=== PATIENT | female | born 2000 | race Two or more races ===

== ENCOUNTER 2022-10-28 12:23 | Outpatient (CLI) | payer OTHER | END 2022-10-28 13:30 | disposition home or self-care (01) | LOC: PRENATAL 12:23 | PROVIDERS: ATTEND Obstetrics & Gynecology Maternal & Fetal Medicine | DX: O35.9XX0 Maternal care for (suspected) fetal abnormality and damage, unspecified, not applicable or unspecified (principal); O35.3XX0 Maternal care for (suspected) damage to fetus from viral disease in mother, not applicable or unspecified; O44.00 Complete placenta previa NOS or without hemorrhage, unspecified trimester; Z3A.20 20 weeks gestation of pregnancy ==

== ENCOUNTER 2022-12-25 14:01 | Outpatient (CLI) | payer OTHER | END 2022-12-25 17:28 | disposition home or self-care (01) | LOC: PRENATAL 14:01 | PROVIDERS: ATTEND Obstetrics & Gynecology Maternal & Fetal Medicine | DX: O26.849 Uterine size-date discrepancy, unspecified trimester (principal); O44.00 Complete placenta previa NOS or without hemorrhage, unspecified trimester; Z3A.28 28 weeks gestation of pregnancy ==

== ENCOUNTER 2023-02-25 18:34 | Inpatient (IN) | payer OTHER ==
[~2023-02-25] VITALS: Ht 152.4 cm; Wt 2.7 kg
[2023-02-25 19:37] LABS: PH,URINE 5.5 (5.0-8.0); URINE APPEARANCE Clear; URINE BILIRRUBIN Negative (NEGATIVE); URINE BLOOD Negative; URINE COLOR Yellow; URINE GLUCOSE Negative (NEGATIVE); URINE LEUKOCYTE Small; URINE NITRATE Negative; URINE PROTEIN Negative (NEGATIVE)
[2023-02-25 19:40] LABS: URINE EPITHELIAL CELLS 43.7 uL (0.0-38.8); URINE WBC 98.3 uL (0.0-23.2)
[2023-02-25 19:45] LABS: HEMATOCRIT 29.9 % (36.0-45.00); HEMOGLOBIN 10.3 g/dL (12.0-15.00); MEAN CELL VOLUME 76.1 fL (80.00-100.00); MEAN CORPUSCULAR HEMOGLOBIN 26.1 pg (27.00-32.0); MEAN CORPUSCULAR HGB CONC 34.3 g/dl (32.0-36.0); PLATELET COUNT 259 K/uL (150-450); RED BLOOD COUNT 3.93 M/uL (4.00-6.00)
[2023-02-25 19:46] LABS: RED CELL DISTRIBUTION WIDTH 28.5 % (11.5-14.5)
[2023-02-25 19:54] LABS: INR < 0.93; PROTHROMBIN TIME 9.8 SECONDS (9.0-11.5)
[2023-02-25] MEDS ORDERED: PRENATAL TABLE1 EAC1 PO (19:57)
[2023-02-25] MEDS ORDERED: VALTREX1000 MG PO (19:58)
[2023-02-25 20:09] LABS: ALBUMIN 2.7 gm/dL (3.4-5.0); BILIRUBIN TOTAL 0.31 mg/dL (0.3-1.2); CALCIUM 9.1 mg/dL (8.5-10.1); CREATININE SERUM 0.42 mg/dL (0.55-1.02); GFR 183.83; GLOBULINA 3.8 G/DL (2.4-3.5); POTASSIUM 4.18 mEq/L (3.5-5.1); TOTAL PROTEIN 6.5 gm/dL (6.4-8.2)
[2023-02-26 07:40] LABS: ABG PH 7.298 (7.35-7.45)
[2023-02-26 07:41] LABS: BASE EXCESS -5.6 mmol/l; BICARBONATE 20.6 mmol/l (23-25); SaO2 50.3 %; o2 21 %
[2023-02-26 10:02] LABS: HEMATOCRIT 27.5 % (36.0-45.00); MEAN CELL VOLUME 76.9 fL (80.00-100.00); MEAN CORPUSCULAR HGB CONC 33.3 g/dl (32.0-36.0); PLATELET COUNT 248 K/uL (150-450); RED BLOOD COUNT 3.58 M/uL (4.00-6.00)
[2023-02-26 10:04] LABS: RED CELL DISTRIBUTION WIDTH 28.9 % (11.5-14.5)
[2023-02-26 10:05] LABS: HEMOGLOBIN 9.1 g/dL (12.0-15.00); MEAN CORPUSCULAR HEMOGLOBIN 25.4 pg (27.00-32.0)
[2023-03-01] MEDS ORDERED: NAPR500T14 PO (09:09)
[2023-03-01] MEDS ORDERED: Tylenol #3 PO (09:09)
== END 2023-03-01 14:22 | disposition home or self-care (01) | DRG 788 ==
LOC: LDR 18:34 → O/R 02-26 07:18 → OB/GYN 02-26 11:07
PROVIDERS: ADMIT Obstetrics & Gynecology; ATTEND Obstetrics & Gynecology
PROC: 4A1HXCZ Monitoring of Products of Conception, Cardiac Rate, External Approach (ICD-10-PCS; 2023-02-25)
PROC: 10D00Z1 Extraction of Products of Conception, Low, Open Approach (ICD-10-PCS; principal; 2023-02-26 07:00)
DX: O62.1 Secondary uterine inertia (principal); Z3A.37 37 weeks gestation of pregnancy; Z37.0 Single live birth; Z20.822 Contact with and (suspected) exposure to COVID-19

== ENCOUNTER 2023-03-24 22:22 | Emergency (ER) | payer OTHER ==
[~2023-03-24] VITALS: Ht 152.4 cm; Wt 61.2 kg
[~2023-03-24 22:22] MED LIST: NAPR500T14 PO; PRENATAL TABLE1 EAC1 PO; Tylenol #3 PO; VALTREX1000 MG PO
[2023-03-25 01:06] LABS: HEMATOCRIT 32.7 % (36.0-45.00); HEMOGLOBIN 11.1 g/dL (12.0-15.00); MEAN CELL VOLUME 75.6 fL (80.00-100.00); MEAN CORPUSCULAR HEMOGLOBIN 25.6 pg (27.00-32.0); MEAN CORPUSCULAR HGB CONC 33.9 g/dl (32.0-36.0); PLATELET COUNT 302 K/uL (150-450); RED BLOOD COUNT 4.33 M/uL (4.00-6.00); RED CELL DISTRIBUTION WIDTH 25.4 % (11.5-14.5)
== END 2023-03-25 13:42 | disposition home or self-care (01) ==
LOC: ER 22:22
PROVIDERS: General Practice
DX: O91.22 Nonpurulent mastitis associated with the puerperium (principal)

== ENCOUNTER 2023-03-29 16:18 | Outpatient (CLI) | payer OTHER | END 2023-03-29 16:23 | disposition home or self-care (01) | LOC: LAB 16:18 | PROVIDERS: ATTEND Specialist | DX: L02.91 Cutaneous abscess, unspecified (principal) ==